=== PATIENT | female | born 1990 | race Caucasian/White ===

== ENCOUNTER 2016-12-12 21:04 | Emergency (ER) | payer MEDICAID ==
--- NOTE | 2016-12-12 21:14 | EDPHY ---
H & P Time Seen by Provider: 12/12/16 21:04 HPI/ROS: CHIEF COMPLAINT: Altered mental status HISTORY OF PRESENT ILLNESS: History from EMS. Patient admitted to synthetic heroin. [place] and was complaining of shortness of breath and then collapsed. Police arrived about 30 seconds later and gave her 4 mg intranasal Narcan and she awakened. She is brought in combative and restrained by paramedics. At this time the patient has no complaints except for some nausea. She says she remembers feeling lightheaded outside and then falling asleep and waking up with EMS next to her. REVIEW OF SYSTEMS: Eye: no change in vision ENT: no sore throat Cardiac: no chest pain or syncope Pulmonary: no cough or SOB Abdomen: no vomiting, diarrhea, abdominal pain Musculoskeletal: no back pain Skin: no rash Neuro: no headache Constitutional: no fever : no urinary symptoms A comprehensive 10 point review of systems is otherwise negative aside from elements mentioned in the history of present illness. PAST MEDICAL HISTORY: Psychiatric note dated 03/30/2014 reviewed includes alcoholism and depression as well as wrist surgery Social history: Recent synthetic heroin. smoker. General Appearance: Alert now, conversant. Eyes: No scleral icterus. ENT, Mouth: Normal mucous membranes. Respiratory: Normal respiratory effort, breath sounds equal, lungs are clear to auscultation. Cardiovascular: Regular rate and rhythm. HR 100. Gastrointestinal: Abdomen is soft and non tender. Neurological: Alert and oriented x3. Normally conversant. Face symmetric, normal movement and sensation in all extremities. Ambulatory without ataxia. Not acutely tremulous. Skin: Warm and dry, no rashes. Musculoskeletal: No peripheral edema and no joint swelling. Psychiatric: Reluctant to make eye contact. Emergency Department course/MDM: Patient received Narcan and awakened. She will be observed in the emergency department. She is placed on a detainer because she admits to alcohol tonight and heroin to her nurse, recent narcan use. 2300: alert, no complaints, clinically sober. Plan to discharge to detox. Smoking Status: Light smoker Constitutional: Initial Vital Signs Temperature (C) 36.3 C 12/12/16 21:05 Heart Rate 121 H 12/12/16 21:05 Respiratory Rate 16 12/12/16 21:05 Blood Pressure 140/108 H 12/12/16 21:05 O2 Sat (%) 97 12/12/16 21:05 O2 Delivery Mode Room Air Allergies/Adverse Reactions: No Known Allergies Allergy (Verified 07/16/16 07:43) Home Medications: Medication Instructions Recorded FLUoxetine [Prozac 20 MG (*)] 60 mg PO DAILY #90 cap 03/30/14 traZODone [traZODone 150MG (*)] 150 mg PO HS #30 tab 03/30/14 Trileptal 07/16/16 Medical Decision Making - Diagnostics EKG Interpretation: 12-lead EKG interpreted by me; official reading is in trace master. My interpretation is sinus tachycardia with QTC 368, no ischemic changes, rate 106 Differential Diagnosis: Differential for altered mental status considered including but not limited to heroin, hypoglycemia, cardiac arrest, vasovagal episode, seizure. - Data Points Medications Given: Discontinued Medications Chlordiazepoxide (Librium 25 Mg Prepack#6) 1 btl TAKEHOME EDNOW ONE Stop: 12/13/16 00:14 Last Admin: 12/13/16 00:19 Dose: 1 btl Ondansetron HCl (Zofran Odt) 4 mg PO EDNOW ONE Stop: 12/12/16 21:40 Last Admin: 12/12/16 21:50 Dose: 4 mg Departure - Departure Disposition: Home, Routine, Self-Care Clinical Impression: Heroin abuse Condition: Good Instructions: Chlordiazepoxide (By mouth), Narcotic Abuse (ED) Referrals: Patient,NotPresent [Unknown] - As per Instructions [facility],. [Clinic] - As per Instructions
[2016-12-12 21:28] VITALS: BP 140/108; PULSE 121; RESP 16; TEMP 97.3; O2SAT 97
[2016-12-12] MEDS ORDERED: ONDANSETRON DISINTEGRATING 4 MG TAB PO ONE (21:39)
--- NOTE | 2016-12-12 21:57 | CPEKG ---
Heart Rate: 106 RR Interval: 566 P-R Interval: 148 QRSD Interval: 82 QT Interval: 368 QTC Interval: 489 P [place]: 58 QRS [place]: 37 T Wave [place]: 53 EKG Severity - BORDERLINE ECG - EKG Impression: SINUS TACHYCARDIA EKG Impression: BORDERLINE PROLONGED QT INTERVAL Electronically Signed By: Xu Moreno 12-Dec-2016 21:59:23
[2016-12-13] MEDS ORDERED: CHLORDIAZEPOXIDE 25MG PREPK#6 BTL TAKEHOME ONE (00:13)
== END 2016-12-13 00:41 | disposition home or self-care (01) ==
LOC: EDUNIT# → EDBD → EEVIPCON 21:04
DX: F11.10 Opioid abuse, uncomplicated (principal); F17.200 Nicotine dependence, unspecified, uncomplicated

== ENCOUNTER 2017-01-05 12:19 | Emergency (ER) | payer MEDICAID ==
[2017-01-05 12:27] VITALS: TEMP 98.6
[2017-01-05] MEDS ORDERED: ONDANSETRON DISINTEGRATING 4 MG TAB ONE (14:33)
[2017-01-05] MEDS ORDERED: chlordiazePOXIDE 25 MG CAP ONE (14:33)
[2017-01-05] MEDS ORDERED: chlordiazePOXIDE 25 MG CAP PO ONE (14:37)
[2017-01-05] MEDS ORDERED: ONDANSETRON DISINTEGRATING 4 MG TAB PO ONE (14:37)
--- NOTE | 2017-01-05 15:09 | EDPHY ---
H & P Stated Complaint: help with ETOH withdrawl Time Seen by Provider: 01/05/17 14:33 HPI/ROS: CHIEF COMPLAINT: "I am withdrawing" HISTORY OF PRESENT ILLNESS: 26-year-old female's history of alcoholism arrives via private [facility] mother took her this morning. [facility] send the patient to the emergency department to receive benzodiazepine. Denies suicidal or homicidal ideation. Denies self-injury. Denies polysubstance abuse. Denies hallucination. Denies seizure. REVIEW OF SYSTEMS: A ten point review of systems was performed and is negative with the exception of the items mentioned in the HPI PAST MEDICAL & SURGICAL HISTORY: alcoholism SOCIAL HISTORY: last drink of alcohol was this morning PHYSICAL EXAM (Prior to examination, patient consented to physical exam, hands were washed and my usual and customary physical exam procedures followed) 1) GENERAL: Well-developed, well-nourished, alert and oriented. Appears anxious. She is tremulous. 2) HEAD: Normocephalic, atraumatic 3) HEENT: Pupils equal, round, reactive to light bilaterally. Sclera anicteric. 4) NECK: Full range of motion, no meningeal signs. 5) LUNGS: Clear auscultation bilaterally, no wheezes, no rhonchi, no retractions. 6) HEART: Regular rate and rhythm, no murmur, no heave, no gallop. 7) ABDOMEN: No guarding, no rebound, no focal tenderness,, 8) MUSCULOSKELETAL: No peripheral edema or discoloration. 9) BACK: no visual or palpable abnormality. 10) SKIN: No rash, no petechiae. 11) Psychiatric: Patient is oriented X 3, there is no agitation. DIFFERENTIAL DIAGNOSIS: in no particular order including but not limited to acute alcohol withdrawal, delirium tremens, alcohol withdrawal seizure - Personal History LMP (Females 10-55): 8-14 Days Ago Current Tetanus/Diphtheria Vaccine: Yes Current Tetanus Diphtheria and Acellular Pertussis (TDAP): Yes Tetanus Vaccine Date: < 10 YEARS - Medical/Surgical History Hx Asthma: No Hx Chronic Respiratory Disease: No Hx Diabetes: No Hx Cardiac Disease: No Hx Renal Disease: No Hx Cirrhosis: No Hx Alcoholism: Yes Hx HIV/AIDS: No Hx Splenectomy or Spleen Trauma: No Other PMH: PMHx: KEILA, depression, bipolar (states mis-diagnosed), MRSA 04/2016 - Social History Smoking Status: Light smoker Constitutional: Initial Vital Signs Temperature (C) 37 C 01/05/17 12:24 Heart Rate 124 H 01/05/17 12:24 Respiratory Rate 18 01/05/17 12:24 Blood Pressure 137/111 H 01/05/17 12:24 O2 Sat (%) 96 01/05/17 12:24 O2 Delivery Mode Room Air Allergies/Adverse Reactions: No Known Allergies Allergy (Verified 01/05/17 12:24) Home Medications: Medication Instructions Recorded FLUoxetine [Prozac 20 MG (*)] 60 mg PO DAILY #90 cap 03/30/14 traZODone [traZODone 150MG (*)] 150 mg PO HS #30 tab 03/30/14 Trileptal 07/16/16 Medical Decision Making ED Course/Re-evaluation: 3:23 p.m.: Re-evaluation, sleeping, feeling improvement, would [facility]. Doubt delirium tremens. No seizure. Not suicidal homicidal. She would like to go to the [facility]. She is feeling improvement in her symptoms after oral Librium and Zofran. - Data Points Medications Given: Discontinued Medications Chlordiazepoxide (Librium 25 Mg Prepack#6) 1 btl TAKEHOME EDNOW ONE Stop: 01/05/17 15:25 Last Admin: 01/05/17 15:39 Dose: 1 btl Chlordiazepoxide HCl (Librium) 50 mg PO EDNOW ONE Stop: 01/05/17 14:38 Last Admin: 01/05/17 14:39 Dose: 50 mg Ondansetron HCl (Zofran Odt) 4 mg PO EDNOW ONE Stop: 01/05/17 14:38 Last Admin: 01/05/17 14:39 Dose: 4 mg Departure - Departure Disposition: Home, Routine, Self-Care Clinical Impression: Alcohol withdrawal Qualifiers: Complication of substance-induced condition: uncomplicated Qualified Code(s): F10.230 - Alcohol dependence with withdrawal, uncomplicated Condition: Good Instructions: Chlordiazepoxide (By mouth), Alcohol Withdrawal (ED) Referrals: [facility] [Outside] - 1 day without fail
[2017-01-05] MEDS ORDERED: CHLORDIAZEPOXIDE 25MG PREPK#6 BTL TAKEHOME ONE (15:24)
[2017-01-05 15:35] VITALS: BP 128/90; PULSE 93; RESP 16; O2SAT 97
== END 2017-01-05 16:03 | disposition home or self-care (01) ==
DX: F10.230 Alcohol dependence with withdrawal, uncomplicated (principal); F17.200 Nicotine dependence, unspecified, uncomplicated

== ENCOUNTER 2017-01-09 14:37 | Emergency (ER) | payer MEDICAID ==
[2017-01-09 14:44] VITALS: RESP 16
--- NOTE | 2017-01-09 16:35 | EDPHY ---
H & P Time Seen by Provider: 01/09/17 16:14 HPI/ROS: CHIEF COMPLAINT: "Itchy eyes" HISTORY OF PRESENT ILLNESS: The patient is a 18-year-old female who presents to the emergency department with bilateral itchy eyes. This started a couple of days ago. She describes bilateral eye itching and puffiness. There is clear colored discharge. The patient states she initially had some mild clear discharge from her right eye. She used some [id number] "clear eyes" which made her eyes irritated bilaterally. She used a few more doses which made her symptoms worse. She now comes to the emergency department complaining of discharge difficulty seeing. She states her vision has improved when she started use her glasses. REVIEW OF SYSTEMS: My complete review of systems is negative except as mentioned in the HPI. Past Medical/Surgical History: Includes depression, bipolar disorder, MRSA Smoking Status: Light smoker Physical Exam: Vitals noted. Afebrile. Mildly tachycardic GENERAL: Well-appearing, in no acute distress, alert. Visual acuity: Normal vision on exam. Eyelids: Normal inspection, everted for exam. Conjunctiva and sclera: Normal inspection. No foreign material. No subconjunctival hemorrhage. No exudate. Not injected. Corneas: Normal inspection. Examined with fluorescein dye: No uptake, abrasion, or ulcer. EOMs: Intact. Pupils: PERRL, normal accommodation. Anterior chambers: Normal inspection. No hyphema. No cells or flare. Posterior segments: Normal funduscopic exam NECK: No lymphadenopathy, supple. RESPIRATORY: Clear to auscultation bilaterally, no rales, rhonchi or wheezing. CVS: Regular rate and rhythm, no rubs, murmurs, or gallops. SKIN: Normal color, no rash, warm, dry. No pallor. NEURO/PSYCH: Alert and oriented x3, normal mood and affect, normal motor sensory exam. No obvious cranial nerve deficit. Constitutional: Initial Vital Signs Temperature (C) 36.5 C 01/09/17 14:38 Heart Rate 112 H 01/09/17 14:38 Respiratory Rate 16 01/09/17 14:38 Blood Pressure 117/79 01/09/17 14:38 O2 Sat (%) 93 01/09/17 14:38 O2 Delivery Mode Room Air Allergies/Adverse Reactions: No Known Allergies Allergy (Verified 01/05/17 12:24) Home Medications: Medication Instructions Recorded Loratadine [Claritin] 10 mg PO BID #10 tablet 01/09/17 Medical Decision Making ED Course/Re-evaluation: In the emergency department I discussed possible etiologies with the patient. I answered all her questions. The patient will be given prescription for Claritin and ciprofloxacin. Differential Diagnosis: My differential includes but is not limited to allergies, viral conjunctivitis, bacterial conjunctivitis, glaucoma, foreign body Departure - Departure Disposition: Home, Routine, Self-Care Clinical Impression: Acute conjunctivitis of both eyes Qualifiers: Acute conjunctivitis type: unspecified Qualified Code(s): H10.33 - Unspecified acute conjunctivitis, bilateral Condition: Good Instructions: Conjunctivitis (ED) Additional Instructions: Use your medications as directed. This ciprofloxacin should be used every 2 hours in both eyes while awake. Take Claritin as directed. Avoid using makeup. Do not use contact lenses or other medication eye drops. Referrals: Cj Yuan MD [Medical Doctor] - 5-7 days, call for appt. Prescriptions: Loratadine [Claritin] 10 mg PO BID #10 tablet
[2017-01-09] MEDS ORDERED: CIPROFLOXACIN 0.3% DROPS PREPACK OPHT.BTL TAKEHOME ONE (16:45)
[2017-01-09 16:53] VITALS: BP 116/71; PULSE 68; TEMP 98.1; O2SAT 97
== END 2017-01-09 16:53 | disposition home or self-care (01) ==
DX: H10.33 Unspecified acute conjunctivitis, bilateral (principal); F17.200 Nicotine dependence, unspecified, uncomplicated

== ENCOUNTER 2019-01-09 15:15 | Emergency (ER) | payer MEDICAID | END 2019-01-09 22:04 | disposition home or self-care (01) ==

== ENCOUNTER 2019-01-28 18:31 | Emergency (ER) | payer MEDICAID | END 2019-01-28 19:13 | disposition home or self-care (01) ==